=== PATIENT | male | born 2000 | race Two or more races ===

== ENCOUNTER 2025-03-25 12:34 | Emergency (ER) | payer MEDICAID, SELFPAY ==
[2025-03-25 12:35] VITALS: BMI 31.8
[2025-03-25 12:40] VITALS: BP 154/83; PULSE 67; RESP 17; TEMP 36.9; O2SAT 99; BMI 32.8
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
[2025-03-25 13:41] VITALS: BP 127/79; PULSE 55; RESP 16; TEMP 36.9; O2SAT 97
[2025-03-25] MEDS: FLUORESCEIN SOD 1 MG STRP BOTH EYES (13:46)
[2025-03-25] MEDS: IBUPROFEN TAB 400 MG TABLET 800 MG PO (13:46)
[2025-03-25] MEDS: TETRACAINE PF OP SOL 0.5% 4 ML DRPETTE 1 DROP BOTH EYES (13:46)
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
[2025-03-25 15:41] VITALS: BP 114/66; PULSE 58; RESP 14; TEMP 36.8; O2SAT 99
[2025-03-25 17:20] VITALS: BP 131/76; PULSE 61; RESP 20; TEMP 36.8; O2SAT 98
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
[2025-03-25 17:30] LABS: Collection Type, Urine Clean Catch; Squamous Epithelial Cell,Urine 0 /hpf (0-5)
[2025-03-25 17:40] LABS: Bilirubin,Urine Negative (Negative); Blood,Urine Negative (Negative); Clarity,Urine Clear (Clear/Hazy); Color,Urine Yellow (Lt Yel-Yel); Culture Indicated,Urine Not Indicated; Glucose, Urine Negative (Negative); Ketones,Urine Negative (Negative); Leukocyte Esterase,Urine Negative (Negative); Nitrite,Urine Negative (Negative); Protein,Urine Trace (Neg - Trace); RBC,Urine 1 /hpf (0-3); Specific Gravity,Urine 1.035 (1.001-1.035); WBC,Urine 1 /hpf (0-5)
== END 2025-03-25 17:26 | disposition home or self-care (01) ==
PROVIDERS: Nurse Practitioner Family; Emergency Provider Emergency Medicine
DX: T20.00XA Burn of unspecified degree of head, face, and neck, unspecified site, initial encounter (principal); T65.891A Toxic effect of other specified substances, accidental (unintentional), initial encounter
CPT/HCPCS: 71046; 80053; 80307; 81001; 85025; 85610; 85730; 99283; A9270